=== PATIENT | male | born 1990 | race African-American/Black ===

== ENCOUNTER 2020-07-12 22:19 | Inpatient (IN) | payer OTHER ==
[~2020-07-12] VITALS: Ht 167.6 cm; Wt 98.8 kg
[2020-07-12 23:12] LABS: Basophils # (auto) 0 10 ^3/uL (0-0.2); Basophils % (auto) 0.6 % (0.0-2.0); Eosinophils # (auto) 0 10 ^3/uL (0-0.8); Eosinophils % (auto) 0.6 % (0.0-7.0); Hematocrit 37.5 % (41.0-53.0); Hemoglobin 12.8 g/dL (13.5-17.5); Lymphocytes % (auto) 16.8 % (10.0-50.0); Mean Corpuscular Hemoglobin 29.6 pg (28.0-32.0); Mean Corpuscular Hgb Conc. 34.1 g/dL (32.0-36.0); Mean Corpuscular Volume 86.8 fL (80.0-100.0); Monocytes # (auto) 0.6 10 ^3/uL (0-1.3); Monocytes % (auto) 9.5 % (0.0-12.0); Neutrophils # (auto) 4.4 10 ^3/uL (1.6-8.6); Neutrophils % (auto) 72.5 % (37.0-80.0); Platelet Count (auto) 213 10^3/uL (140-450); Red Blood Cells 4.31 10^6/uL (4.5-5.90); Red Cell Distribution Width 14.4 % (11.8-14.3)
[2020-07-12 23:14] LABS: Nucleated Red Blood Cells % 0.1 %
[2020-07-12 23:20] LABS: Albumin 3.9 g/dL (3.4-5.0); BUN/Creatinine Ratio 18.8; Calcium 8.7 mg/dL (8.5-10.1); Potassium 4.2 mmol/L (3.5-5.1)
[2020-07-12 23:23] LABS: Bilirubin, Total 0.9 mg/dL (0.2-1.0); Total Protein 7.2 g/dL (6.4-8.2)
[2020-07-13] MEDS ORDERED: MORPHINE SULF INJ 2 MG/ML SYRINGE 1ML IV PRN (00:30)
[2020-07-13] MEDS ORDERED: cefTRIAXone 1GM/50ML D5W 50 ML IV ONE (00:30)
[2020-07-13] MEDS ORDERED: PANTOPRAZOLE 40 MG/10 ML VIAL INJ IV ONE (00:30)
[2020-07-13] MEDS ORDERED: metroNIDAZOLE 500MG/100ML 100 ML IV ONE (00:30)
[2020-07-13] MEDS ORDERED: NITROGLYCERIN 0.4 MG SL TAB SL PRN (00:30)
[2020-07-13] MEDS: MORPHINE SULFATE 4 MG/ML SYR/VIAL IV PRN ×2 (01:03→05:14)
[2020-07-13] MEDS: ONDANSETRON HCL 4 MG/2 ML VIAL IV PRN ×2 (01:04→05:15)
[2020-07-13 03:09] LABS: Urine Bacteria NONE SEEN /hpf (None Seen); Urine Blood Negative /uL (Negative); Urine Specific Gravity 1.014 (1.001-1.035); Urine WBC <1 /hpf (0 - 3)
[2020-07-13] MEDS: metroNIDAZOLE 500MG/100ML 100 ML IV SCH ×3 (06:32→21:51)
[2020-07-13 07:48] LABS: Basophils # (auto) 0 10 ^3/uL (0-0.2); Basophils % (auto) 0.6 % (0.0-2.0); Eosinophils # (auto) 0.1 10 ^3/uL (0-0.8); Eosinophils % (auto) 1.4 % (0.0-7.0); Hematocrit 33.7 % (41.0-53.0); Hemoglobin 11.5 g/dL (13.5-17.5); Lymphocytes # (auto) 1.2 10 ^3/uL (0.4-5.4); Lymphocytes % (auto) 25.3 % (10.0-50.0); Mean Corpuscular Hemoglobin 29.5 pg (28.0-32.0); Mean Corpuscular Hgb Conc. 34.2 g/dL (32.0-36.0); Mean Corpuscular Volume 86.4 fL (80.0-100.0); Monocytes # (auto) 0.5 10 ^3/uL (0-1.3); Monocytes % (auto) 11.7 % (0.0-12.0); Neutrophils # (auto) 2.8 10 ^3/uL (1.6-8.6); Nucleated Red Blood Cells % 0.1 %; Platelet Count (auto) 179 10^3/uL (140-450); Red Cell Distribution Width 14.1 % (11.8-14.3); White Blood Cell 4.6 10^3/uL (4.4-10.8)
[2020-07-13 08:01] LABS: INR 1.06 (0.9-1.15)
[2020-07-13] MEDS: cefTRIAXone 1GM/50ML D5W 50 ML IV SCH (09:12)
[2020-07-13] MEDS: PANTOPRAZOLE 40 MG/10 ML VIAL INJ IV SCH ×2 (09:12→21:51)
[2020-07-13 21:35] VITALS: BP 117/82
[2020-07-13] MEDS: MIRTAZAPINE 30 MG TAB PO SCH ×2 (21:52→22:00)
[2020-07-14] MEDS: MORPHINE SULFATE 4 MG/ML SYR/VIAL IV PRN ×2 (02:32→06:58)
[2020-07-14 05:00] VITALS: BP 107/77
[2020-07-14] MEDS: metroNIDAZOLE 500MG/100ML 100 ML IV SCH ×3 (06:00→21:41)
[2020-07-14 06:12] LABS: Basophils # (auto) 0 10 ^3/uL (0-0.2); Basophils % (auto) 0.4 % (0.0-2.0); Eosinophils # (auto) 0.1 10 ^3/uL (0-0.8); Eosinophils % (auto) 1.9 % (0.0-7.0); Hematocrit 28.6 % (41.0-53.0); Hemoglobin 9.9 g/dL (13.5-17.5); Lymphocytes # (auto) 0.8 10 ^3/uL (0.4-5.4); Lymphocytes % (auto) 18.7 % (10.0-50.0); Mean Corpuscular Hemoglobin 30.2 pg (28.0-32.0); Mean Corpuscular Hgb Conc. 34.5 g/dL (32.0-36.0); Mean Corpuscular Volume 87.7 fL (80.0-100.0); Monocytes # (auto) 0.4 10 ^3/uL (0-1.3); Monocytes % (auto) 10.8 % (0.0-12.0); Neutrophils # (auto) 2.8 10 ^3/uL (1.6-8.6); Neutrophils % (auto) 68.2 % (37.0-80.0); Nucleated Red Blood Cells % 0.2 %; Platelet Count (auto) 176 10^3/uL (140-450); Red Blood Cells 3.27 10^6/uL (4.5-5.90); Red Cell Distribution Width 14.5 % (11.8-14.3); White Blood Cell 4.1 10^3/uL (4.4-10.8)
[2020-07-14 08:02] VITALS: BP 117/69
[2020-07-14] MEDS: cefTRIAXone 1GM/50ML D5W 50 ML IV SCH (09:00)
[2020-07-14] MEDS: PANTOPRAZOLE 40 MG/10 ML VIAL INJ IV SCH ×2 (09:49→21:41)
[2020-07-14 16:16] VITALS: BP 108/61
[2020-07-14] MEDS: MIRTAZAPINE 30 MG TAB PO SCH (21:40)
[2020-07-14] MEDS: ALPRAZolam 0.5 MG TAB PO PRN (21:41)
[2020-07-14 22:00] VITALS: BP 116/68
[2020-07-15 05:00] VITALS: BP 102/42
[2020-07-15] MEDS: metroNIDAZOLE 500MG/100ML 100 ML IV SCH ×3 (06:35→22:00)
[2020-07-15 08:00] VITALS: BP 101/56
[2020-07-15 08:33] LABS: Basophils # (auto) 0 10 ^3/uL (0-0.2); Basophils % (auto) 0.6 % (0.0-2.0); Eosinophils # (auto) 0.1 10 ^3/uL (0-0.8); Hematocrit 25.5 % (41.0-53.0); Hemoglobin 8.9 g/dL (13.5-17.5); Lymphocytes # (auto) 0.8 10 ^3/uL (0.4-5.4); Lymphocytes % (auto) 18.7 % (10.0-50.0); Mean Corpuscular Hemoglobin 30.7 pg (28.0-32.0); Mean Corpuscular Hgb Conc. 34.9 g/dL (32.0-36.0); Mean Corpuscular Volume 87.9 fL (80.0-100.0); Monocytes # (auto) 0.5 10 ^3/uL (0-1.3); Monocytes % (auto) 10.1 % (0.0-12.0); Neutrophils # (auto) 3.1 10 ^3/uL (1.6-8.6); Neutrophils % (auto) 68.6 % (37.0-80.0); Nucleated Red Blood Cells % 0.2 %; Platelet Count (auto) 183 10^3/uL (140-450); Red Cell Distribution Width 14.3 % (11.8-14.3); White Blood Cell 4.5 10^3/uL (4.4-10.8)
[2020-07-15] MEDS: cefTRIAXone 1GM/50ML D5W 50 ML IV SCH (09:10)
[2020-07-15] MEDS: PANTOPRAZOLE 40 MG/10 ML VIAL INJ IV SCH ×2 (10:07→22:27)
[2020-07-15 13:00] VITALS: BP 106/56
[2020-07-15 16:48] VITALS: BP 106/54
[2020-07-15] MEDS: ONDANSETRON HCL 4 MG/2 ML VIAL IV PRN ×2 (17:25→22:16)
[2020-07-15 21:30] VITALS: BP 110/68
[2020-07-15] MEDS: MIRTAZAPINE 30 MG TAB PO SCH (22:00)
[2020-07-15] MEDS: MORPHINE SULFATE 4 MG/ML SYR/VIAL IV PRN ×2 (22:16→22:32)
[2020-07-15 22:59] LABS: Basophils # (auto) 0 10 ^3/uL (0-0.2)
[2020-07-15 23:02] LABS: Basophils % (auto) 0.6 % (0.0-2.0); Eosinophils # (auto) 0 10 ^3/uL (0-0.8); Eosinophils % (auto) 0.6 % (0.0-7.0); Hematocrit 22.7 % (41.0-53.0); Hemoglobin 7.8 g/dL (13.5-17.5); Lymphocytes # (auto) 1.4 10 ^3/uL (0.4-5.4); Lymphocytes % (auto) 20.1 % (10.0-50.0); Mean Corpuscular Hemoglobin 30.3 pg (28.0-32.0); Mean Corpuscular Hgb Conc. 34.4 g/dL (32.0-36.0); Monocytes # (auto) 0.6 10 ^3/uL (0-1.3); Monocytes % (auto) 9.4 % (0.0-12.0); Neutrophils # (auto) 4.7 10 ^3/uL (1.6-8.6); Neutrophils % (auto) 69.3 % (37.0-80.0); Nucleated Red Blood Cells % 0.8 %; Platelet Count (auto) 238 10^3/uL (140-450); Red Blood Cells 2.58 10^6/uL (4.5-5.90); Red Cell Distribution Width 13.8 % (11.8-14.3); White Blood Cell 6.8 10^3/uL (4.4-10.8)
[2020-07-15 23:16] LABS: Calcium 8.1 mg/dL (8.5-10.1); Potassium 4.3 mmol/L (3.5-5.1)
[2020-07-16] MEDS: ONDANSETRON HCL 4 MG/2 ML VIAL IV PRN ×4 (02:13→20:47)
[2020-07-16] MEDS: MORPHINE SULFATE 4 MG/ML SYR/VIAL IV PRN ×4 (02:54→20:47)
[2020-07-16 06:00] VITALS: BP 103/63
[2020-07-16] MEDS: metroNIDAZOLE 500MG/100ML 100 ML IV SCH ×3 (06:03→22:17)
[2020-07-16 07:07] LABS: Basophils # (auto) 0 10 ^3/uL (0-0.2); Eosinophils # (auto) 0 10 ^3/uL (0-0.8); Hemoglobin 7.1 g/dL (13.5-17.5); Lymphocytes # (auto) 0.8 10 ^3/uL (0.4-5.4); Lymphocytes % (auto) 11.8 % (10.0-50.0); Monocytes # (auto) 0.7 10 ^3/uL (0-1.3); Neutrophils # (auto) 5.1 10 ^3/uL (1.6-8.6); Neutrophils % (auto) 76.5 % (37.0-80.0); Red Cell Distribution Width 14.4 % (11.8-14.3); White Blood Cell 6.6 10^3/uL (4.4-10.8)
[2020-07-16 07:10] LABS: Basophils % (auto) 0.4 % (0.0-2.0); Eosinophils % (auto) 0.3 % (0.0-7.0); Hematocrit 20.4 % (41.0-53.0); Mean Corpuscular Hemoglobin 31.1 pg (28.0-32.0); Mean Corpuscular Hgb Conc. 34.9 g/dL (32.0-36.0); Mean Corpuscular Volume 89.2 fL (80.0-100.0); Nucleated Red Blood Cells % 1.9 %; Platelet Count (auto) 216 10^3/uL (140-450); Red Blood Cells 2.29 10^6/uL (4.5-5.90)
[2020-07-16 08:00] VITALS: BP 130/69
[2020-07-16] MEDS: cefTRIAXone 1GM/50ML D5W 50 ML IV SCH (09:18)
[2020-07-16] MEDS: PANTOPRAZOLE 40 MG/10 ML VIAL INJ IV SCH ×2 (09:18→22:17)
[2020-07-16 12:00] VITALS: BP 125/63
[2020-07-16] MEDS: SODIUM CHL 0.9% IV SCH (13:37)
[2020-07-16] MEDS: IRON SUCROSE COMPLEX IV SCH (13:37)
[2020-07-16 16:00] VITALS: BP 126/70
[2020-07-16] MEDS: MIRTAZAPINE 30 MG TAB PO SCH (22:00)
[2020-07-16 22:06] VITALS: BP 115/60
[2020-07-17] VITALS (8 sets, daily range): BP systolic 105–142; BP diastolic 54–74
[2020-07-17] MEDS: metroNIDAZOLE 500MG/100ML 100 ML IV SCH ×3 (05:39→21:31)
[2020-07-17 06:47] LABS: Urine Bacteria NONE SEEN /hpf (None Seen); Urine Blood Negative /uL (Negative); Urine Specific Gravity 1.012 (1.001-1.035); Urine WBC 1 /hpf (0 - 3)
[2020-07-17 07:04] LABS: INR 1.09 (0.9-1.15); Partial Thromboplastin Time 26.5 sec (23.0-31.2)
[2020-07-17] MEDS ORDERED: LIDOCAINE VISCOUS 2% 15ML UD ONE (07:55)
[2020-07-17] MEDS ORDERED: diphenhdrAMINE HCL 50 MG/1 ML VL ONE (07:56)
[2020-07-17] MEDS: fentaNYL CITRATE 100 MCG/2 ML VL ONE ×3 (08:15→08:25)
[2020-07-17] MEDS: MIDAZOLAM HCL 5 MG/ML-1ML VIAL ONE ×3 (08:15→08:25)
[2020-07-17] MEDS: cefTRIAXone 1GM/50ML D5W 50 ML IV SCH (09:39)
[2020-07-17] MEDS: PANTOPRAZOLE 40 MG/10 ML VIAL INJ IV SCH (09:39)
[2020-07-17] MEDS: PANTOPRAZOLE 40mg/50ML NS AE 50 ML IV SCH ×4 (10:51→21:27)
[2020-07-17] MEDS ORDERED: IOHEXOL 350 MG/ML 100ML IJ ONE (11:39)
[2020-07-17 12:31] LABS: Mean Corpuscular Hemoglobin 31.3 pg (28.0-32.0); Mean Corpuscular Volume 92.1 fL (80.0-100.0); White Blood Cell 7.1 10^3/uL (4.4-10.8)
[2020-07-17] MEDS: ONDANSETRON HCL 4 MG/2 ML VIAL IV PRN ×2 (12:33→21:32)
[2020-07-17] MEDS: MORPHINE SULFATE 4 MG/ML SYR/VIAL IV PRN ×2 (12:34→22:56)
[2020-07-17] MEDS: IRON SUCROSE COMPLEX IV SCH (12:34)
[2020-07-17] MEDS: SODIUM CHL 0.9% IV SCH (12:34)
[2020-07-17 12:35] LABS: Platelet Count (auto) 211 10^3/uL (140-450); Red Blood Cells 1.95 10^6/uL (4.5-5.90); Red Cell Distribution Width 15.1 % (11.8-14.3)
[2020-07-17 12:45] LABS: Hemoglobin 6.1 g/dL (13.5-17.5)
[2020-07-17 12:46] LABS: Basophils % (manual) 0 (0.0-2.0); Blast Cells 0; Eosinophils % (manual) 0 (0-7); Myelocytes % 0; Promyelocytes % 0; Reactive Lymphocytes 0
[2020-07-17 13:11] LABS: Band Neutrophils % (manual) 2; Lymphocytes % (manual) 11 (10.0-50.0); Metamyelocytes % 2; Monocytes % (manual) 5 (0-12)
[2020-07-17] MEDS: ALPRAZolam 0.5 MG TAB PO PRN (21:32)
[2020-07-17] MEDS: MIRTAZAPINE 30 MG TAB PO SCH (22:00)
[2020-07-18] VITALS (8 sets, daily range): BP systolic 110–126; BP diastolic 60–75
[2020-07-18] MEDS: PANTOPRAZOLE 40mg/50ML NS AE 50 ML IV SCH ×5 (02:22→21:26)
[2020-07-18] MEDS: metroNIDAZOLE 500MG/100ML 100 ML IV SCH ×3 (06:00→21:25)
[2020-07-18] MEDS: cefTRIAXone 1GM/50ML D5W 50 ML IV SCH (09:01)
[2020-07-18 09:28] LABS: Hematocrit 22.8 % (41.0-53.0); Hemoglobin 7.7 g/dL (13.5-17.5); Mean Corpuscular Hemoglobin 31.2 pg (28.0-32.0)
[2020-07-18 09:30] LABS: Mean Corpuscular Hgb Conc. 33.9 g/dL (32.0-36.0); Mean Corpuscular Volume 91.9 fL (80.0-100.0); Platelet Count (auto) 179 10^3/uL (140-450); Red Blood Cells 2.48 10^6/uL (4.5-5.90); Red Cell Distribution Width 16.1 % (11.8-14.3); White Blood Cell 7.2 10^3/uL (4.4-10.8)
[2020-07-18 09:34] LABS: Basophils % (manual) 0 (0.0-2.0); Blast Cells 0; Eosinophils % (manual) 0 (0-7); Promyelocytes % 0; Reactive Lymphocytes 0
[2020-07-18 09:50] LABS: Band Neutrophils % (manual) 1; Lymphocytes % (manual) 18 (10.0-50.0); Metamyelocytes % 1; Monocytes % (manual) 9 (0-12); Myelocytes % 1
[2020-07-18] MEDS: IRON SUCROSE COMPLEX IV SCH (12:50)
[2020-07-18] MEDS: SODIUM CHL 0.9% IV SCH (12:50)
[2020-07-18] MEDS: MIRTAZAPINE 30 MG TAB PO SCH ×2 (21:26→21:30)
[2020-07-19] MEDS: ONDANSETRON HCL 4 MG/2 ML VIAL IV PRN (01:28)
[2020-07-19] MEDS: PANTOPRAZOLE 40mg/50ML NS AE 50 ML IV SCH ×5 (02:22→22:52)
[2020-07-19 05:35] VITALS: BP 112/73
[2020-07-19] MEDS: metroNIDAZOLE 500MG/100ML 100 ML IV SCH (06:19)
[2020-07-19] MEDS: cefTRIAXone 1GM/50ML D5W 50 ML IV SCH (08:34)
[2020-07-19 08:38] LABS: Hemoglobin 7.3 g/dL (13.5-17.5); Mean Corpuscular Hgb Conc. 33.9 g/dL (32.0-36.0); White Blood Cell 7.8 10^3/uL (4.4-10.8)
[2020-07-19 08:39] LABS: Hematocrit 21.5 % (41.0-53.0); Mean Corpuscular Hemoglobin 31.5 pg (28.0-32.0); Platelet Count (auto) 212 10^3/uL (140-450); Red Blood Cells 2.31 10^6/uL (4.5-5.90); Red Cell Distribution Width 16.8 % (11.8-14.3)
[2020-07-19 08:47] LABS: Band Neutrophils % (manual) 0; Basophils % (manual) 0 (0.0-2.0); Blast Cells 0; Metamyelocytes % 0; Myelocytes % 0; Promyelocytes % 0; Reactive Lymphocytes 0
[2020-07-19 08:51] LABS: Albumin 2.8 g/dL (3.4-5.0); Calcium 7.7 mg/dL (8.5-10.1); Potassium 3.9 mmol/L (3.5-5.1)
[2020-07-19 08:55] LABS: BUN/Creatinine Ratio 15.6; Bilirubin, Total 1.3 mg/dL (0.2-1.0); Total Protein 5.2 g/dL (6.4-8.2)
[2020-07-19 09:00] VITALS: BP 100/58
[2020-07-19 09:06] LABS: Eosinophils % (manual) 1 (0-7); Lymphocytes % (manual) 18 (10.0-50.0); Monocytes % (manual) 9 (0-12)
[2020-07-19] MEDS: IRON SUCROSE COMPLEX IV SCH (12:00)
[2020-07-19] MEDS: SODIUM CHL 0.9% IV SCH (12:00)
[2020-07-19 13:00] VITALS: BP 108/62
[2020-07-19 16:28] VITALS: BP 95/54
[2020-07-19 22:00] VITALS: BP 102/47
[2020-07-19] MEDS: MIRTAZAPINE 30 MG TAB PO SCH (22:00)
[2020-07-20] MEDS: PANTOPRAZOLE 40mg/50ML NS AE 50 ML IV SCH ×5 (04:33→23:55)
[2020-07-20 04:58] VITALS: BP 100/47
[2020-07-20 06:08] LABS: Basophils # (auto) 0 10 ^3/uL (0-0.2); Basophils % (auto) 0.5 % (0.0-2.0); Eosinophils # (auto) 0 10 ^3/uL (0-0.8); Eosinophils % (auto) 0.5 % (0.0-7.0); Hematocrit 18.3 % (41.0-53.0); Lymphocytes % (auto) 12.6 % (10.0-50.0); Mean Corpuscular Hemoglobin 33.2 pg (28.0-32.0); Mean Corpuscular Hgb Conc. 35.4 g/dL (32.0-36.0); Mean Corpuscular Volume 93.8 fL (80.0-100.0); Monocytes # (auto) 1.1 10 ^3/uL (0-1.3); Neutrophils # (auto) 5.6 10 ^3/uL (1.6-8.6); Neutrophils % (auto) 72.4 % (37.0-80.0); Platelet Count (auto) 182 10^3/uL (140-450); Red Blood Cells 1.96 10^6/uL (4.5-5.90); Red Cell Distribution Width 18.6 % (11.8-14.3); White Blood Cell 7.7 10^3/uL (4.4-10.8)
[2020-07-20 06:09] LABS: Calcium 7.2 mg/dL (8.5-10.1); Potassium 3.4 mmol/L (3.5-5.1)
[2020-07-20 06:12] LABS: BUN/Creatinine Ratio 10.7
[2020-07-20 06:16] LABS: Nucleated Red Blood Cells % 4.2 %
[2020-07-20 06:18] LABS: Hemoglobin 6.5 g/dL (13.5-17.5)
[2020-07-20 08:00] VITALS: BP 99/41
[2020-07-20 08:27] LABS: INR 1.1 (0.9-1.15); Partial Thromboplastin Time 26.8 sec (23.0-31.2)
[2020-07-20 09:00] VITALS: BP 99/41
[2020-07-20 12:00] VITALS: BP 103/60
[2020-07-20] MEDS ORDERED: IODIXANOL 320MG/ML 100ML BTL IV ONE ×2 (13:17→14:50)
[2020-07-20] MEDS ORDERED: LIDOCAINE 2%HCL (LOCAL ANESTH.) INJ 20ML MDV ONE (13:17)
[2020-07-20] MEDS ORDERED: MIDAZOLAM HCL 1MG/1ML-2 ML VIAL ONE (13:36)
[2020-07-20] MEDS ORDERED: fentaNYL CITRATE 100 MCG/2 ML VL ONE (13:36)
[2020-07-20] MEDS ORDERED: diphenhdrAMINE HCL 50 MG/1 ML VL ONE (14:42)
[2020-07-20] MEDS ORDERED: IOHEXOL 350 MG/ML 100ML IJ ONE (14:50)
[2020-07-20 16:00] VITALS: BP 123/67
[2020-07-20] MEDS ORDERED: POTASSIUM EFFERVESENT TAB 25 MEQ PO ONE (16:30)
[2020-07-20] MEDS: SODIUM CHL 0.9% IV SCH (16:47)
[2020-07-20] MEDS: IRON SUCROSE COMPLEX IV SCH (16:47)
[2020-07-20] MEDS ORDERED: ACETAMINOPHEN 325 MG TAB PO PRN (22:00)
[2020-07-20] MEDS: MIRTAZAPINE 30 MG TAB PO SCH (22:00)
[2020-07-20 22:12] VITALS: BP 93/44
[2020-07-21] VITALS (12 sets, daily range): BP systolic 99–135; BP diastolic 50–62
[2020-07-21] MEDS: PANTOPRAZOLE 40mg/50ML NS AE 50 ML IV SCH ×4 (05:26→20:19)
[2020-07-21 09:44] LABS: Basophils # (auto) 0 10 ^3/uL (0-0.2); Basophils % (auto) 0.4 % (0.0-2.0); Eosinophils # (auto) 0 10 ^3/uL (0-0.8); Eosinophils % (auto) 0.2 % (0.0-7.0); Hematocrit 24.8 % (41.0-53.0); Hemoglobin 8.3 g/dL (13.5-17.5); Lymphocytes # (auto) 0.9 10 ^3/uL (0.4-5.4); Lymphocytes % (auto) 15.1 % (10.0-50.0); Mean Corpuscular Hemoglobin 31.3 pg (28.0-32.0); Mean Corpuscular Hgb Conc. 33.4 g/dL (32.0-36.0); Monocytes # (auto) 0.7 10 ^3/uL (0-1.3); Monocytes % (auto) 11.7 % (0.0-12.0); Neutrophils # (auto) 4.5 10 ^3/uL (1.6-8.6); Neutrophils % (auto) 72.6 % (37.0-80.0); Nucleated Red Blood Cells % 1.3 %; Platelet Count (auto) 176 10^3/uL (140-450); Red Blood Cells 2.64 10^6/uL (4.5-5.90); White Blood Cell 6.2 10^3/uL (4.4-10.8)
[2020-07-21 09:55] LABS: BUN/Creatinine Ratio 9.3; Calcium 7.7 mg/dL (8.5-10.1); Potassium 3.5 mmol/L (3.5-5.1)
[2020-07-21] MEDS: IRON SUCROSE COMPLEX IV SCH (12:16)
[2020-07-21] MEDS: SODIUM CHL 0.9% IV SCH (12:16)
[2020-07-21] MEDS: MIRTAZAPINE 30 MG TAB PO SCH (22:00)
[2020-07-22] MEDS: PANTOPRAZOLE 40mg/50ML NS AE 50 ML IV SCH ×2 (01:46→06:15)
[2020-07-22 08:00] VITALS: BP 125/68
[2020-07-22 08:30] VITALS: BP 125/68
[2020-07-22] MEDS ORDERED: HYDROcodone-ACET 10/325MG TAB PO PRN (10:45)
[2020-07-22] MEDS ORDERED: ACETAMINOPHEN 325 MG TAB PO PRN (11:00)
[2020-07-22] MEDS: IRON SUCROSE COMPLEX IV SCH (12:11)
[2020-07-22] MEDS: SODIUM CHL 0.9% IV SCH (12:11)
[2020-07-22 12:30] VITALS: BP 121/62
[2020-07-22 14:02] LABS: Basophils # (auto) 0 10 ^3/uL (0-0.2); Basophils % (auto) 0.5 % (0.0-2.0); Eosinophils # (auto) 0 10 ^3/uL (0-0.8); Eosinophils % (auto) 0.4 % (0.0-7.0); Hematocrit 25.1 % (41.0-53.0); Hemoglobin 8.6 g/dL (13.5-17.5); Lymphocytes # (auto) 1.1 10 ^3/uL (0.4-5.4); Lymphocytes % (auto) 13.9 % (10.0-50.0); Mean Corpuscular Hemoglobin 32.6 pg (28.0-32.0); Mean Corpuscular Hgb Conc. 34.2 g/dL (32.0-36.0); Mean Corpuscular Volume 95.4 fL (80.0-100.0); Monocytes # (auto) 0.9 10 ^3/uL (0-1.3); Neutrophils # (auto) 5.9 10 ^3/uL (1.6-8.6); Neutrophils % (auto) 74.2 % (37.0-80.0); Nucleated Red Blood Cells % 0.5 %; Platelet Count (auto) 180 10^3/uL (140-450); Red Blood Cells 2.63 10^6/uL (4.5-5.90); Red Cell Distribution Width 18.7 % (11.8-14.3); White Blood Cell 7.9 10^3/uL (4.4-10.8)
[2020-07-22 17:00] VITALS: BP 118/57
[2020-07-22 22:00] VITALS: BP 123/55
[2020-07-22] MEDS: MIRTAZAPINE 30 MG TAB PO SCH (22:00)
[2020-07-22] MEDS: PANTOPRAZOLE 40 MG TAB PO SCH (22:18)
[2020-07-23 05:03] VITALS: BP 105/57
[2020-07-23 06:13] LABS: Basophils # (auto) 0 10 ^3/uL (0-0.2); Basophils % (auto) 0.4 % (0.0-2.0); Eosinophils # (auto) 0.1 10 ^3/uL (0-0.8); Eosinophils % (auto) 0.9 % (0.0-7.0); Hematocrit 25.7 % (41.0-53.0); Hemoglobin 8.7 g/dL (13.5-17.5); Lymphocytes # (auto) 1.2 10 ^3/uL (0.4-5.4); Lymphocytes % (auto) 18.2 % (10.0-50.0); Mean Corpuscular Hemoglobin 32.1 pg (28.0-32.0); Mean Corpuscular Hgb Conc. 33.7 g/dL (32.0-36.0); Mean Corpuscular Volume 95.3 fL (80.0-100.0); Monocytes # (auto) 0.7 10 ^3/uL (0-1.3); Monocytes % (auto) 10.1 % (0.0-12.0); Neutrophils # (auto) 4.6 10 ^3/uL (1.6-8.6); Neutrophils % (auto) 70.4 % (37.0-80.0); Nucleated Red Blood Cells % 0.8 %; Platelet Count (auto) 150 10^3/uL (140-450); Red Blood Cells 2.69 10^6/uL (4.5-5.90); Red Cell Distribution Width 19.4 % (11.8-14.3); White Blood Cell 6.6 10^3/uL (4.4-10.8)
[2020-07-23 09:00] VITALS: BP 135/53
[2020-07-23] MEDS ORDERED: PANT40TA2 PO (09:59)
[2020-07-23] MEDS: PANTOPRAZOLE 40 MG TAB PO SCH (10:37)
[2020-07-23] MEDS: IRON SUCROSE COMPLEX IV SCH (12:00)
[2020-07-23] MEDS: SODIUM CHL 0.9% IV SCH (12:00)
[2020-07-23 13:00] VITALS: BP 125/67
[2020-07-23 16:55] VITALS: BP 129/70
== END 2020-07-23 21:51 | DRG 356 ==
LOC: ER 22:22 → EEVIPCON 22:23 → OVERFLOW 22:23 → CENTRAL 07-13 16:51 → EAST 07-21 23:18
PROVIDERS: ADMIT Internal Medicine; ATTEND Internal Medicine
PROC: 3E0G8GC Introduction of Other Therapeutic Substance into Upper GI, Via Natural or Artificial Opening Endoscopic (ICD-10-PCS; 2020-07-17)
PROC: 30233N1 Transfusion of Nonautologous Red Blood Cells into Peripheral Vein, Percutaneous Approach (ICD-10-PCS; 2020-07-17)
PROC: 04L33DZ Occlusion of Hepatic Artery with Intraluminal Device, Percutaneous Approach (ICD-10-PCS; principal; 2020-07-20)
PROC: B412YZZ Fluoroscopy of Hepatic Artery using Other Contrast (ICD-10-PCS; 2020-07-20)
PROC: B414YZZ Fluoroscopy of Superior Mesenteric Artery using Other Contrast (ICD-10-PCS; 2020-07-20)
PROC: B41FYZZ Fluoroscopy of Right Lower Extremity Arteries using Other Contrast (ICD-10-PCS; 2020-07-20)
PROC: B410YZZ Fluoroscopy of Abdominal Aorta using Other Contrast (ICD-10-PCS; 2020-07-20)
DX: K29.70 Gastritis, unspecified, without bleeding (principal); K26.0 Acute duodenal ulcer with hemorrhage; D62 Acute posthemorrhagic anemia; K20.90 Esophagitis, unspecified without bleeding; Z20.822 Contact with and (suspected) exposure to COVID-19; F17.210 Nicotine dependence, cigarettes, uncomplicated; F32.9 Major depressive disorder, single episode, unspecified; F41.9 Anxiety disorder, unspecified; Z91.013 Allergy to seafood; S09.8XXA Other specified injuries of head, initial encounter; W18.39XA Other fall on same level, initial encounter; Y92.231 Patient bathroom in hospital as the place of occurrence of the external cause; Y93.89 Activity, other specified; Y99.8 Other external cause status
CPT/HCPCS: 36415; 37242; 43255; 70450; 74176; 74178; 75625; 75710; 75726; 76000; 76937; 80048; 80053; 81001; 82270; 82962; 83690; 85007; 85025; 85027; 85610; 85730; 86850; 86900; 86901; 86920; 87426; 96365; 96366; 96367; 96375; 99152; 99153; C9113; G0378; J0696; J1756; J2250; J2405; J3490; Q9967